=== PATIENT | male | born 1975 | race Caucasian/White ===

== ENCOUNTER → 2016-11-06 | Outpatient (CLI) | payer OTHER ==
[~2016-11-06] MED LIST: LIPITOR20 MG PO; LISINOPRIL-HCTZ1 T18 PO; MULTI VITAMIN1 EACH PO; OMEPRAZOLE40 M1 PO; PRINIVIL10 MG PO
[2016-11-06 15:29] LABS: BLOOD UREA NITROGEN 11 mg/dL (9-23); CALCIUM SERUM 9.8 mg/dL (8.4-10.2); CARBON DIOXIDE 29 mmol/L (22-31); CHLORIDE 100 mmol/L (100-111); GLOM FILT RATE Estimated ABOVE60 mL/min (>60); GLUCOSE FASTING 68 mg/dL (70-110); POTASSIUM 3.7 mmol/L (3.5-5.1); SODIUM 139 mmol/L (135-145)
== END | disposition home or self-care (01) ==
LOC: CAMB 14:14
PROVIDERS: Surgery
DX: Z01.812 Encounter for preprocedural laboratory examination (principal)
CPT/HCPCS: 36415; 80048

== ENCOUNTER → 2016-11-13 | Day surgery (SDC) | payer OTHER ==
--- NOTE | ~2016-11-13 | OR ---
Unit #: [id number] #: [id number] Patient: CORNELIA GUNN [id number] [facility]. [address] [place], [place] [address] [id number] O MR#: [id number] NAME: CORNELIA GUNN ROOM: Date of Procedure: 11/13/2016 Admission Date: 11/13/2016 Surgeon: Jose Norris Jr., M.D. : 1975 Attending Physician: Jose Norris Jr., M.D. OPERATIVE REPORT INDICATION FOR PROCEDURE The patient is a 41-year-old white male, who has had a chronic pilonidal cyst in the sacral area for sometime, which intermittently has had some drainage. He has several small sinus tracts in this area. He is brought in this time at his request for primary excision of this. He has had no previous surgery on it. PREOPERATIVE DIAGNOSIS Chronic inflamed infected pilonidal cyst. POSTOPERATIVE DIAGNOSIS Chronic inflamed infected pilonidal cyst. ANESTHESIA General with endotracheal intubation and 0.5% Marcaine with epinephrine locally. PROCEDURE PERFORMED Excision of pilonidal cyst. DESCRIPTION OF PROCEDURE The patient was positioned in the supine position. After being anesthetized and intubated, he was placed in prone position, prepped and draped in routine fashion for excision of his pilonidal. The area around the sacral region was locally anesthetized with 0.5% Marcaine with epinephrine. An elliptical incision was made around the area where the sinus tracts were extending out at least an inch on both sides. The flaps were developed laterally down to the gluteus and the specimen completely removed down to the periosteum of the sacrum. After the entire tissue in the subcutaneous was removed, it was sent to pathology. Hemostasis was achieved with Bovie cautery. The deeper tissue approximated with interrupted #1 Vicryl sutures. The deep subcutaneous tissue approximated with interrupted #1 Vicryl sutures. Skin edges approximated with stainless-steel skin clips as well as interrupted 3-0 mattress stitches. Sterile compressive dressing was applied externally. Estimated blood loss less than 50 mL. The patient received less than 1500 mL crystalloid solution during the procedure. Sponges and instruments counts were correct x3. No drains were used. No complications. The patient was taken to the recovery room with stable vital signs in satisfactory condition. Unit #: [id number] #: [id number] Patient: CORNELIA GUNN Dictated by... Jose Norris Jr., MBrady HOWARD/zaynab TD: 11/13/2016 22:54 JOB #: [id number] OPERATIVE REPORT X Jose Norris MD X PROCEDURE OPERATIVE NOTE
== END | disposition home or self-care (01) ==
LOC: CSUR 05:22
DX: L05.91 Pilonidal cyst without abscess (principal); I10 Essential (primary) hypertension; F17.210 Nicotine dependence, cigarettes, uncomplicated; E78.00 Pure hypercholesterolemia, unspecified; E78.5 Hyperlipidemia, unspecified; Z79.899 Other long term (current) drug therapy; H61.23 Impacted cerumen, bilateral; Z98.890 Other specified postprocedural states; Z87.19 Personal history of other diseases of the digestive system; Z82.5 Family history of asthma and other chronic lower respiratory diseases; Z82.49 Family history of ischemic heart disease and other diseases of the circulatory system; Z83.42 Family history of familial hypercholesterolemia
CPT/HCPCS: 88304; J2250; J2270; J2405; J3010